=== PATIENT | male | born 1995 | race Caucasian/White ===

== ENCOUNTER → 2020-01-01 | Outpatient (CLI) | payer SELFPAY ==
[~2020-01-01] MED LIST: NORCO 325 MG-51 TAB PO
== END | disposition home or self-care (01) ==
LOC: COVID19 13:58
DX: Z03.818 Encounter for observation for suspected exposure to other biological agents ruled out (principal); Z78.9 Other specified health status; Z20.828 Contact with and (suspected) exposure to other viral communicable diseases